=== PATIENT | female | born 1955 | race Caucasian/White ===

== ENCOUNTER 2019-02-03 10:42 | Emergency (ER) | payer OTHER ==
[~2019-02-03] VITALS: Ht 157.5 cm; Wt 65.8 kg
[~2019-02-03 10:42] MED LIST: FLEXERIL PO; HYDROCODON-ACE1 EAC5 PO; LISINOPRIL10 MG PO; LISINOPRIL20 MG; LISINOPRIL20 MG PO; MEDROLDOSEPACK PO; NORCO 10-325 T1 EACH PO; NORCO 5-325 TA1 EACH PO; PAXIL; PAXIL20 MG
[2019-02-03 11:25] LABS: ABSOLUTE NEUTROPHILS 5.2 thou/uL (1.4-8.2); BASOPHILS 1.3 % (0.0-2.0); EOSINOPHILS 3.5 % (0.0-3.0); HEMATOCRIT 38.7 % (37.0-47.0); HEMOGLOBIN 13.4 gm/dL (12.0-15.0); LYMPHOCYTES 28.9 % (24.0-44.0); MCHC 34.7 g/dL (28.0-37.0); MONOCYTES 6.7 % (1.0-8.0); PLATELET COUNT 331 thou/uL (150-400); POLYS 59.6 % (36.0-66.0); RBC 3.95 mil/uL (4.20-5.00); RDW 12.4 % (10.5-14.5); WBC 8.7 thou/uL (4.0-11.0)
[2019-02-03 11:32] LABS: CALCIUM 9.6 mg/dL (8.5-10.1); CREATININE 0.9 mg/dL (0.6-1.0); POTASSIUM 3.6 mmol/L (3.5-5.1); PROTIME 10.1 Seconds (9.3-11.4)
[2019-02-03 11:38] LABS: ALBUMIN 4.1 g/dL (3.4-5.0); TOTAL BILIRUBIN 0.5 mg/dL (<0.1-1.0); TOTAL PROTEIN 7.8 g/dL (6.4-8.2)
[2019-02-03 11:40] VITALS: BP 124/75
[2019-02-03] MEDS ORDERED: NORCO 5-325 TA1 EACH PO (11:40)
[2019-02-03] MEDS ORDERED: LIDOCAINE VISC100 ML SWISH&SPIT (11:40)
== END 2019-02-03 11:40 | disposition home or self-care (01) ==
LOC: ER 10:42
PROVIDERS: Physician Assistant
DX: K14.0 Glossitis (principal); K14.8 Other diseases of tongue; G43.909 Migraine, unspecified, not intractable, without status migrainosus; F32.9 Major depressive disorder, single episode, unspecified; I10 Essential (primary) hypertension; M13.869 Other specified arthritis, unspecified knee; M13.879 Other specified arthritis, unspecified ankle and foot; Z88.0 Allergy status to penicillin